=== PATIENT | male | born 1955 | race Caucasian/White ===

== ENCOUNTER → 2016-12-21 | Day surgery (SDC) | payer OTHER ==
[~2016-12-21] VITALS: Ht 175.3 cm; Wt 78.0 kg
[~2016-12-21] MED LIST: 0.9% Sodium Chloride 1,000 ML IV PRN; ALBU8.5H2 INHALATION; AMOX500T2 PO; ARGI500T4 PO; BENZ200C44 PO; CAL1TABL PO; CALC-78 PO; FLUT16SP NS; MAGN500C16 PO; OMEG-15 PO; SULF1TAB7 PO; SYMINH INHALATION; Sodium Chloride LOK Flush 10 mL Syringe IV PRN; UBIQ1CAP PO; VIT1TABL83 PO; VITA-272 PO; ZINC50TA4 PO; fentaNYL-PF 50 mCg/mL 2 mL Inj IVPUSH PRN
[2016-12-21 07:42] VITALS: BP 146/78; PULSE 71; RESP 14; O2SAT 99
[2016-12-21 08:23] VITALS: BP 124/68; PULSE 60; RESP 14; O2SAT 95
--- NOTE | 2016-12-21 08:32 | ENDO ---
[address] [address] ENDOSCOPY PROCEDURE PATIENT: BETHEL VEE : 1955 MR#: [id number] ADMIT: 12/21/2016 JOB ID: [id number] DATE: 12/21/2016 PRIMARY PROVIDER: Chhaya Keen MD PROCEDURE: Colonoscopy with hot snare polypectomy. INDICATIONS: A 61-year-old male with a personal history of colon polyps returning for surveillance. EQUIPMENT: [employer]80AL. SEDATION: 1. Versed 5 mg. 2. Fentanyl 100 mcg. COMPLICATIONS: None identified. BOWEL PREP: Excellent. PROCEDURE INFO: After the risks and benefits were explained, written and verbal informed consent was obtained. The patient was brought into the endoscopy suite and placed into the left lateral decubitus position. Sedation was achieved as above. A digital rectal examination was accomplished. No significant pathology appreciated. The scope was introduced into the rectum and advanced to the cecum as identified by the appendiceal orifice and ileocecal valve. The scope was slowly withdrawn to carefully examine the mucosa for any defects or lesions. Retroflexed views were accomplished in the rectum. The colon was decompressed. The scope removed the patient who tolerated the procedure well. FINDINGS: There was an approximately 6 mm sessile polyp in the proximal ascending colon, removed with hot snare. No other significant pathology was appreciated throughout. ENDOSCOPIC DIAGNOSIS: Small colon polyp. RECOMMENDATIONS: 1. Await histopathology. 2. Repeat colonoscopy five years.
[2016-12-21 08:55] VITALS: BP 110/73; PULSE 62; RESP 14; O2SAT 95
--- NOTE | 2016-12-22 15:57 | PATH ---
SURGICAL PATHOLOGY Attending Physician:Wesley Pappas CASE STATUS: Signed Out PATIENT NAME: BETHEL VEE . PID: [id number] : 1955 DATE COLLECTED:12/21/2016 21:27 SPECIMEN: Colon, Polyp CLINICAL HISTORY: 1). ASCENDING COLON POLYP X1 FINAL DIAGNOSIS: Ascending Colon, Polyp, Biopsy: Portions of sessile serrated adenoma. ICD10: K63.5 GROSS DESCRIPTION: The specimen is received in one formalin filled container labeled with the patient's name, sublabeled "ascending colon polyp and "and consists of 2 portions of tissue which aggregate to 0.2 x 0.2 x 0.1 CM. The specimen is entirely submitted in one cassette. 12/21/2016DC ICD-9 CODES: CPT CODES: 1: 14774 Electronically Signed Out Flower Guardado MD [facility] Pathology [facility] [address], [place] [address] Technical component performed at [facility], [facility] [address], [place], [address]
== END | disposition home or self-care (01) ==
LOC: END 00:17
PROVIDERS: ATTEND Internal Medicine Gastroenterology
DX: Z12.11 Encounter for screening for malignant neoplasm of colon (principal); Z86.010 Personal history of colon polyps; D12.2 Benign neoplasm of ascending colon; J45.909 Unspecified asthma, uncomplicated; E78.5 Hyperlipidemia, unspecified; Z85.828 Personal history of other malignant neoplasm of skin
CPT/HCPCS: 45385; 99153; G0500; J2250; J3010; J7030